=== PATIENT | female | born 1965 | race African-American/Black ===

== ENCOUNTER 2017-10-22 08:35 | Inpatient (IN) | payer OTHER ==
[~2017-10-22] VITALS: Ht 162.6 cm; Wt 56.7 kg
[2017-10-22] VITALS (12 sets, daily range): BP systolic 116–137; BP diastolic 69–85
[~2017-10-22 08:35] MED LIST: MULTIVITAMINS1 EAC2 ORAL; Pantoprazole Inj IVP ONE; Vancomycin 1gm/D5W 275ml IVPB ONE
[2017-10-22] MEDS ORDERED: Hydromorphone 0.5mg/0.5ml inj IVP PRN ×2 (09:00→16:15)
[2017-10-22] MEDS ORDERED: Metoclopramide 10mg/2ml Inj IVP PRN ×2 (09:00→16:15)
[2017-10-22] MEDS ORDERED: Atropine Inj 1mg/10ml Syr IV PRN ×2 (09:00→16:15)
[2017-10-22] MEDS ORDERED: Norco 5mg/325mg tab ORAL PRN ×3 (09:00→17:15)
[2017-10-22] MEDS ORDERED: Midazolam 2mg/2ml Inj IVP PRN ×2 (09:00→16:15)
[2017-10-22] MEDS ORDERED: Ketorolac 30mg Inj IV PRN ×4 (09:00→16:15)
[2017-10-22] MEDS ORDERED: Acetaminophen (Non formulary) 100 ML IV SCH (09:00)
[2017-10-22] MEDS ORDERED: oxyCODONE HCL/Acetaminophen 5/325mg ORAL PRN ×2 (09:00→16:15)
[2017-10-22] MEDS ORDERED: LORazepam Inj 2mg/ml 1ml IV PRN ×2 (09:00→16:15)
[2017-10-22] MEDS ORDERED: Labetalol 5mg/ml 20ml vial IV PRN ×2 (09:00→16:15)
[2017-10-22] MEDS ORDERED: fentaNYL 100 mcg/2 mL IV PRN ×2 (09:00→16:15)
[2017-10-22] MEDS ORDERED: DiphenhydrAMINE 50mg/ml Inj IVP PRN ×2 (09:00→16:15)
[2017-10-22] MEDS ORDERED: HYDROcodone/Acetamin 7.5/325 tab ORAL PRN ×3 (09:00→17:15)
[2017-10-22] MEDS ORDERED: LR 1000ml 1,000 ML IVLG SCH (09:00)
--- NOTE | 2017-10-22 09:01 | Anethesia Preoperative Eval ---
Anesthesia Pre-op PMH/ROS General Date of Evaluation: Oct 22, 2017 Time of Evaluation: 10:16 Anesthesiologist: Pietro ASA Score: ASA 1 Mallampati Score Class I : Soft palate, uvula, fauces, pillars visible Class II: Soft palate, uvula, fauces visible Class III: Soft palate, base of uvula visible Class IV: Only hard plate visible Mallampati Classification: Class I Surgeon: Katie Diagnosis: Neck Pain Surgical Procedure: PSF C3-6 Family History: no anesthesia problems Allergies: Coded Allergies: No Known Allergies (Unverified , 10/21/17) Medications: see eMAR Past Medical History PSxH Narrative: Breast Augmentation Anesthesia Pre-op Phys. Exam Physician Exam Vital Signs Date Time Temp Pulse Resp B/P (MAP) Pulse Ox O2 Delivery O2 Flow Rate FiO2 10/22/17 09:31 98.6 74 18 116/70 (85) 99 98.6 10/22/17 09:34 Room Air Constitutional: NAD Neurologic: CN 2-12 intact Cardiovascular: RRR Respiratory: CTA Gastrointestinal: S/NT/ND Airway Exam Mallampati Score: Class I MO: full ROM: limited Teeth: intact Anesthesia Pre-op A/P Risk Assessment & Plan Assessment: ASA 1 Plan: GA, BIS, GlideScope Status Change Before Surgery: No Pre-Antibiotics Dru Gram Vancomycin IV Given Within 1 Hr of Incision: Yes Time Given: 10:41 Javier Westbrook MD Oct 22, 2017 09:01
[2017-10-22] MEDS ORDERED: Pantoprazole Inj ONE (09:10)
[2017-10-22] MEDS ORDERED: Vancomycin 1gm inj IVPB ONE (09:11)
[2017-10-22] MEDS ORDERED: Heparin 1000 units/ml 1ml Vial ONE (09:37)
[2017-10-22] MEDS ORDERED: Gelfoam Absorbable 1gm powder pkt TOPIC ONE (09:38)
[2017-10-22] MEDS ORDERED: Thrombin 5000 units TOPIC ONE ×2 (09:38→13:46)
[2017-10-22] MEDS ORDERED: Thrombin 5000 units spray kit TOPIC ONE (09:38)
[2017-10-22] MEDS ORDERED: Bacitracin 50000 Units Vial ONE (09:38)
[2017-10-22] MEDS ORDERED: EPINEPHrine 1mg/1ml Amp ONE (09:39)
[2017-10-22] MEDS ORDERED: Bupivacaine 0.5% Inj 30 ml vial INJ ONE (09:39)
[2017-10-22] MEDS ORDERED: NS Irrig 1000ml ONE (10:00)
[2017-10-22] MEDS ORDERED: Propofol 1,000mg/ 100ml btl IV ONE (10:00)
[2017-10-22] MEDS ORDERED: Sterile Water Irrig 1000ml IRRIG ONE (10:00)
[2017-10-22] MEDS ORDERED: LR 1000ml ONE (10:00)
[2017-10-22] MEDS ORDERED: Lidocaine 1% Plain 30 ml INJ ONE ×3 (10:13→11:20)
[2017-10-22] MEDS ORDERED: Sodium Chloride 10ml vial INJ ONE ×2 (10:15→15:07)
[2017-10-22] MEDS ORDERED: Lidocaine 1% MPF 10mg/ml 5ml ONE (10:15)
[2017-10-22] MEDS ORDERED: Dexamethasone 4mg/ml vial ONE (10:15)
[2017-10-22] MEDS ORDERED: fentaNYL 100 mcg/2 mL IV ONE ×4 (10:16→15:11)
[2017-10-22] MEDS ORDERED: Lacri-Lube Opth Oint 3.5gm ONE (10:20)
[2017-10-22] MEDS ORDERED: Bacitracin Oint 15gm Tube TOPIC ONE (10:32)
--- NOTE | 2017-10-22 10:39 | Pre-Procedure Note/Attestation ---
Pre-Procedure Note/Attestation Complete Prior to Procedure Planned Procedure: bilateral Procedure Narrative: Posterior cervical decompressive surgery C3 to C6 with lateral mass fixation and posterolateral arthrodesis C3 to C6 with use of autograft, allograft and iliac crest bone marrow aspirate. Attestation I attest that I discussed the nature of the procedure; its benefits; risks and complications; and alternatives (and the risks and benefits of such alternatives ), prior to the procedure, with the patient (or the patient's legal retail representative). I attest that, if there was a reasonable possibility of needing a blood transfusion, the patient (or the patient's legal retail representative) was given the [place] Department [employer] Services standardized written summary, pursuant to the Benson Levi Blood Safety Act ([place] Health and Safety Code # 1645, as amended). I attest that I re-evaluated the patient just prior to the surgery and that there has been no change in the patient's H&P, except as documented below: AUTUMN THURMAN Oct 22, 2017 10:39
--- NOTE | 2017-10-22 11:37 | Immediate Post-Op Evaluation ---
Immediate Post-Op Evalulation Immediate Post-Op Evalulation Procedure: PSF C3-6 Date of Evaluation: Oct 22, 2017 Time of Evaluation: 16:44 IV Fluids: 1300 LR Blood Products: 0 Estimated Blood Loss: 200 Urinary Output: 350 Blood Pressure Systolic: 126 Blood Pressure Diastolic: 80 Pulse Rate: 91 Respiratory Rate: 16 O2 Sat by Pulse Oximetry: 100 Temperature (Fahrenheit): 97 Pain Score (1-10): 3 Nausea: No Vomiting: No Complications 0 Patient Status: awake, reacts, patent, extubated, none Hydration Status: adequate Dru gram vancomycin IV Given Within 1 Hr of Incision: Yes Time Given: 10:41 Javier Westbrook MD Oct 22, 2017 11:37
[2017-10-22] MEDS ORDERED: Naloxone 0.4mg/ml Inj ONE (15:46)
--- NOTE | 2017-10-22 16:36 | Diagnostic Imaging Report ---
Indication: Neck Pain Findings: 7 fluoroscopic views of the cervical spine were obtained. Intraoperative imaging showing posterior fusion C3-C6 with lateral mass screws and fusion rods. IMPRESSION: Intraoperative imaging
--- NOTE | 2017-10-22 17:08 | Brief Operative Note ---
Immediate Post Operative Note Operative Note Chief Complaint: Intractable neck pain and progressive worsening balance Pre-op Diagnosis: Cervical myelopathy and radiculopathy cord compression due to herniated discs at C3-4, C4-5 and C5-6 levels Lack of improvement from conservative care and medical therapy. Procedure: 1. Posterior cervical hemilaminectomies with bilateral decompression left C3-4, C4-5, C5-6 levels, with complete central decompression C3 to C6 2. Laminoforaminotomy at right C3-4 3. Laminoforaminotomy at right C4-5 4. [place] of local bone from lamina for grafting 5. Posterolateral arthrodesis at C3-4, C4-5, C5-6 level bilaterally 6. Lateral mass fixation with screws and rods at C3, C4, C5 and C6 levels, bilaterally using [place] lateral mass system 7.[place] of bone marrow from the right iliac crest for grafting 8. Intra-operative supervision, use and interpretation of fluoroscopy for localization of cervical spine and instrumentation. 9. Plastic surgical closure of a 10 cm cervical wound. 10. Microdissection and neurolysis of right C4 and C5 nerve roots 11. Intra-operative neuromonitoring and interpretation of SSEPs, MEPs and EMG. 12. Placement of epidural drain. 13. Placement of [place] head of integrated media. Post-op Diagnosis: same as pre-op Findings: consistent w/pre-op dx studies Surgeon: Kyree Thurman M.D. Clinic Mgr: Dimitrios Lomax M.D. Anesthesiologist: Dr. Ferris Anesthesia: general Specimen: none Complications: none Condition: stable Fluids: 1300 cc crystalloids Estimated Blood Loss: volume Drains: hemovac Implant(s) used?: Yes - [place] lateral mass system KYREE THURMAN Oct 22, 2017 17:08
[2017-10-22] MEDS ORDERED: traMADol 50mg tab ORAL PRN (17:15)
[2017-10-22] MEDS ORDERED: Milk of Magnesia 30ml Ud ORAL PRN (17:15)
[2017-10-22] MEDS ORDERED: Acetaminophen (Non formulary) 100 ML IV ONE (17:30)
[2017-10-22] MEDS ORDERED: Cyclobenzaprine 10mg Tab ORAL PRN (17:30)
--- NOTE | 2017-10-22 17:43 | General Progress Note ---
Progress Note Progress Note Neurosurgery POst-op S/ Comfortable. O/ Vs Last 24 Hour Vital Signs Date Time Temp Pulse Resp B/P (MAP) Pulse Ox O2 Delivery O2 Flow Rate FiO2 10/22/17 17:30 76 19 120/69 100 Nasal Cannula 3 10/22/17 17:15 76 15 122/71 100 Simple Mask 6 10/22/17 17:00 84 16 134/83 100 Simple Mask 6 10/22/17 16:50 85 14 127/79 100 Simple Mask 6 10/22/17 16:43 88 16 130/81 100 Simple Mask 6 10/22/17 16:38 85 14 123/81 100 Simple Mask 6 10/22/17 16:34 206.6 91 16 100 10/22/17 16:33 97 89 16 126/80 100 Simple Mask 6 97.0 10/22/17 09:34 Room Air 10/22/17 09:31 98.6 74 18 116/70 (85) 99 98.6 Alert and oriented MAEW Drain about 10cc out Doing well\ Admit to floor after Recovery AUTUMN THURMAN Oct 22, 2017 17:43
[2017-10-22] MEDS ORDERED: Docusate 100mg cap ORAL SCH (18:00)
[2017-10-22] MEDS ORDERED: Docusate Sod/Senna tab ORAL SCH (18:00)
[2017-10-22] MEDS ORDERED: NS w/KCl 20mEq 1,000 ML IV SCH (19:00)
[2017-10-22] MEDS ORDERED: Vancomycin 1gm/D5W 275ml IVPB SCH ×2 (20:00)
[2017-10-22] MEDS: NS w/KCl 20mEq 1,000 ML IV SCH (21:10)
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
[2017-10-23] VITALS: BP 116/64
[2017-10-23 04:00] VITALS: BP 105/63
[2017-10-23] MEDS: NS w/KCl 20mEq 1,000 ML IV SCH ×2 (06:25→16:00)
[2017-10-23 07:14] LABS: ANION GAP 8 mmol/L (5-15); BLOOD UREA NITROGEN 4 mg/dL (7-18); CALCIUM 7.3 MG/DL (8.5-10.1); CARBON DIOXIDE 25 MMOL/L (21-32); CHLORIDE 105 MMOL/L (98-107); CREATININE 0.7 MG/DL (0.55-1.30); POTASSIUM 3.9 MMOL/L (3.5-5.1); SODIUM 138 MMOL/L (136-145)
--- NOTE | 2017-10-23 07:28 | 48 Hour Post Anesthesia Eval ---
Post Anesthesia Evaluation Procedure: PSF C3-6 Date of Evaluation: Oct 23, 2017 Time of Evaluation: 06:20 Blood Pressure Systolic: 105 0: 63 Pulse Rate: 63 Respiratory Rate: 17 Temperature (Fahrenheit): 98.5 O2 Sat by Pulse Oximetry: 100 Airway: patent Nausea: No Vomiting: No Pain Intensity: 2 Hydration Status: adequate Cardiopulmonary Status: at baseline Mental Status/LOC: patient returned to baseline Post-Anesthesia Complications: 0 Follow-up care needed: N/A - further care as per primary team Agnieszka Philip MD Oct 23, 2017 07:28
[2017-10-23 08:00] VITALS: BP 125/61
[2017-10-23] MEDS ORDERED: Vancomycin 1 GM in D5W 275 ML IVPB SCH (09:00)
--- NOTE | 2017-10-23 09:00 | General Progress Note ---
Progress Note Progress Note Neurosurgery POD#1 S/ Pain under control. Ambulated in eroom. Increasd sensations in both hands O/ VS Last 24 Hour Vital Signs Date Time Temp Pulse Resp B/P (MAP) Pulse Ox O2 Delivery O2 Flow Rate FiO2 10/23/17 07:28 209.3 63 17 100 10/23/17 04:00 98.5 63 17 105/63 (77) 100 98.5 10/23/17 00:00 97.9 66 18 116/64 (81) 96 97.9 10/22/17 21:00 Nasal Cannula 3.0 10/22/17 20:00 97.5 72 18 128/78 (95) 99 97.5 10/22/17 18:15 99.1 87 15 127/85 (99) 99 99.1 10/22/17 18:15 Nasal Cannula 3.0 10/22/17 18:15 98.3 10/22/17 18:00 98.3 82 16 124/75 100 Nasal Cannula 3 98.3 10/22/17 17:45 98.6 10/22/17 17:45 84 16 137/80 100 Nasal Cannula 3 10/22/17 17:30 76 19 120/69 100 Nasal Cannula 3 10/22/17 17:15 76 15 122/71 100 Simple Mask 6 10/22/17 17:00 84 16 134/83 100 Simple Mask 6 10/22/17 16:50 85 14 127/79 100 Simple Mask 6 10/22/17 16:43 88 16 130/81 100 Simple Mask 6 10/22/17 16:38 85 14 123/81 100 Simple Mask 6 10/22/17 16:34 206.6 91 16 100 10/22/17 16:33 97 89 16 126/80 100 Simple Mask 6 97.0 10/22/17 09:34 Room Air 10/22/17 09:31 98.6 74 18 116/70 (85) 99 98.6 Alert and oriented x 4 MAEW increased sensation in the hands bilaterally Incisions are clean dry and intact HV 85 cc last night Labs Laboratory Tests Test 10/23/17 05:35 White Blood Count 9.6 K/UL (4.8-10.8) Red Blood Count 4.17 M/UL (4.20-5.40) L Hemoglobin 11.0 G/DL (12.0-16.0) L Hematocrit 34.9 % (37.0-47.0) L Mean Corpuscular Volume 84 FL (80-99) Mean Corpuscular Hemoglobin 26.3 PG (27.0-31.0) L Mean Corpuscular Hemoglobin Concent 31.4 G/DL (32.0-36.0) L Red Cell Distribution Width 11.3 % (11.6-14.8) L Platelet Count 158 K/UL (150-450) Mean Platelet Volume 7.1 FL (6.5-10.1) Neutrophils (%) (Auto) 79.7 % (45.0-75.0) H Lymphocytes (%) (Auto) 14.3 % (20.0-45.0) L Monocytes (%) (Auto) 5.7 % (1.0-10.0) Eosinophils (%) (Auto) 0.1 % (0.0-3.0) Basophils (%) (Auto) 0.3 % (0.0-2.0) Sodium Level 138 MMOL/L (136-145) Potassium Level 3.9 MMOL/L (3.5-5.1) Chloride Level 105 MMOL/L (98-107) Carbon Dioxide Level 25 MMOL/L (21-32) Anion Gap 8 mmol/L (5-15) Blood Urea Nitrogen 4 mg/dL (7-18) L Creatinine 0.7 MG/DL (0.55-1.30) Estimat Glomerular Filtration Rate > 60 mL/min (>60) Glucose Level 97 MG/DL (74-106) Calcium Level 7.3 MG/DL (8.5-10.1) L doing well ambulate d/c planning AUTUMN THURMAN Oct 23, 2017 09:00
[2017-10-23] MEDS: Docusate 100mg cap ORAL SCH ×2 (09:08→17:30)
[2017-10-23] MEDS: Docusate Sod/Senna tab ORAL SCH ×2 (09:08→17:30)
[2017-10-23 12:00] VITALS: BP 114/74
[2017-10-23 16:00] VITALS: BP 113/65
[2017-10-23 20:00] VITALS: BP 115/63
--- NOTE | 2017-10-23 23:46 | General Progress Note ---
Assessment/Plan Status Narrative s/p complex posterior spine fusion doing well pt ort dvt prophyalxis paincontrol monitor jr doing well off norcotic as she does not like the effect of norcotic. Subjective Date patient seen: Oct 23, 2017 Time patient seen: 23:44 Constitutional: Reports: no symptoms Cardiovascular: Reports: no symptoms Allergies: Coded Allergies: No Known Allergies (Unverified , 10/21/17) Subjective copuld not tolerat e the pain medicaiotn no fever no chills Objective Last 24 Hour Vital Signs Date Time Temp Pulse Resp B/P (MAP) Pulse Ox O2 Delivery O2 Flow Rate FiO2 10/23/17 21:00 Room Air 10/23/17 20:00 98.8 77 20 115/63 (80) 97 98.8 10/23/17 16:00 98.1 82 20 113/65 (81) 99 98.1 10/23/17 12:48 Room Air 10/23/17 12:00 99.1 72 20 114/74 (87) 98 99.1 10/23/17 09:00 Nasal Cannula 3.0 10/23/17 08:00 98.6 70 20 125/61 (82) 98 98.6 10/23/17 07:28 209.3 63 17 100 10/23/17 04:00 98.5 63 17 105/63 (77) 100 98.5 10/23/17 00:00 97.9 66 18 116/64 (81) 96 97.9 Intake and Output 10/22/17 10/23/17 19:00 07:00 Intake Total 1500 ml 1310 ml Output Total 550 ml 1395 ml Balance 950 ml -85 ml Intake Oral 360 ml IV Total 1500 ml 950 ml Output Urine Total 350 ml 1275 ml Drainage Total 120 ml Estimated Blood Loss 200 ml # Voids 1 Laboratory Tests 10/23/17 05:35: White Blood Count 9.6, Red Blood Count 4.17L, Hemoglobin 11.0L, Hematocrit 34.9L , Mean Corpuscular Volume 84, Mean Corpuscular Hemoglobin 26.3L, Mean Corpuscular Hemoglobin Concent 31.4L, Red Cell Distribution Width 11.3L, Platelet Count 158, Mean Platelet Volume 7.1, Neutrophils (%) (Auto) 79.7H, Lymphocytes (%) (Auto) 14.3L, Monocytes (%) (Auto) 5.7, Eosinophils (%) (Auto) 0.1, Basophils (%) (Auto) 0.3, Sodium Level 138, Potassium Level 3.9, Chloride Level 105, Carbon Dioxide Level 25, Anion Gap 8, Blood Urea Nitrogen 4L, Creatinine 0.7, Estimat Glomerular Filtration Rate > 60, Glucose Level 97, Calcium Level 7.3L Height (Feet): 5 Height (Inches): 4.00 Weight (Pounds): 125 General Appearance: WD/WN Neck: other - wearing cerviical collar soft Cardiovascular: normal rate, regular rhythm Respiratory/Chest: lungs clear Abdomen: soft Oswald Phan MD Oct 23, 2017 23:46
[2017-10-24] VITALS: BP 117/72
[2017-10-24 04:00] VITALS: BP 107/68
[2017-10-24 08:00] VITALS: BP 110/69
[2017-10-24] MEDS: Docusate 100mg cap ORAL SCH (09:00)
[2017-10-24] MEDS: Docusate Sod/Senna tab ORAL SCH (10:49)
--- NOTE | 2017-10-24 10:53 | General Progress Note ---
Progress Note Progress Note Neurosurgery S/ Felling much better. Ambulated. Pain better controlled. Tolerating po's well O/ Vs: Last 24 Hour Vital Signs Date Time Temp Pulse Resp B/P (MAP) Pulse Ox O2 Delivery O2 Flow Rate FiO2 10/24/17 04:00 98.5 78 20 107/68 (81) 99 98.5 10/24/17 00:00 99.1 74 20 117/72 (87) 99 99.1 10/23/17 21:00 Room Air 10/23/17 20:00 98.8 77 20 115/63 (80) 97 98.8 10/23/17 16:00 98.1 82 20 113/65 (81) 99 98.1 10/23/17 12:48 Room Air 10/23/17 12:00 99.1 72 20 114/74 (87) 98 99.1 Alert and orineted x 4 smiling Incision is C/D/I Motor 5/5 improved senstion in the hands and upper extremities bilaterally HV removed without complications doing well d/c instructions reviewed with patient and nursing in detail. AUTUMN THURMAN Oct 24, 2017 10:53
--- NOTE | 2017-10-24 11:49 | General Progress Note ---
Assessment/Plan Status Narrative s/p comple xspine surgery doing well pain is tolerated Assessment/Plan dc home followup tracy lozano. Subjective Date patient seen: Oct 24, 2017 Time patient seen: 11:49 HEENT: Reports: no symptoms Cardiovascular: Reports: no symptoms Allergies: Coded Allergies: No Known Allergies (Unverified , 10/21/17) Subjective dioign well to go home no feve nochills Objective Last 24 Hour Vital Signs Date Time Temp Pulse Resp B/P (MAP) Pulse Ox O2 Delivery O2 Flow Rate FiO2 10/24/17 04:00 98.5 78 20 107/68 (81) 99 98.5 10/24/17 00:00 99.1 74 20 117/72 (87) 99 99.1 10/23/17 21:00 Room Air 10/23/17 20:00 98.8 77 20 115/63 (80) 97 98.8 10/23/17 16:00 98.1 82 20 113/65 (81) 99 98.1 10/23/17 12:48 Room Air 10/23/17 12:00 99.1 72 20 114/74 (87) 98 99.1 Intake and Output 10/23/17 10/24/17 19:00 07:00 Intake Total 1745 ml 300 ml Output Total 2065 ml 35 ml Balance -320 ml 265 ml Intake Oral 820 ml 300 ml IV Total 925 ml Output Urine Total 2000 ml Drainage Total 65 ml 35 ml # Voids 1 1 Height (Feet): 5 Height (Inches): 4.00 Weight (Pounds): 125 Oswald Phan MD Oct 24, 2017 11:49
[2017-10-24 12:00] VITALS: BP 115/78
[2017-10-24] MEDS ORDERED: TRAMADOL HCL50 MG ORAL (12:33)
[2017-10-24] MEDS ORDERED: CYCLOBENZAPRINE5 MG ORAL (12:35)
--- NOTE | 2017-10-25 02:30 | Discharge Summary ---
DATE OF ADMISSION: 10/22/2017 DATE OF DISCHARGE: 10/24/2017 DISCHARGE DIAGNOSIS: Status post posterior cervical decompressive surgery and lateral mass fusion C3 through C6 with posterolateral arthrodesis. HISTORY OF PRESENT ILLNESS: Refer to the chart for detailed History and Physical. HOSPITAL COURSE: The patient was admitted on 10/22/2017, underwent an uneventful posterior cervical decompressive surgery at C3 through C6 levels with posterolateral arthrodesis. Postop, the patient was transferred to the floor. Drain was removed postop day 2. She is ambulating well. Her upper extremity sensation significantly improved after surgery. Physical therapy has been working with her. She has been discharged home with appropriate discharge instructions. CONSULTATION: Internal Medicine with Dr. Erickson. MEDICATIONS: Include cyclobenzaprine and tramadol as directed. DISCHARGE DIET: Regular. DISPOSITION: Home. ACTIVITIES: The patient is asked to wear the cervical collar at all times for the first week. She can wear the cervical collar out of bed after the first week. She is asked not to bend more than 5 pounds on repetitive basis. She is asked to call Dr. Wilson and go to the nearest ER in case of fever, chills, or drainage from her incision. She is asked to keep the incision dry for four days. COMPLICATIONS: None. Kyree Wilson M.D. DR: GALILEO JOB#: [id number] CC:
== END 2017-10-24 13:45 | disposition home or self-care (01) | DRG 473 ==
LOC: SDSOVERFLO 08:35 → 3E 18:35
DX: M50.11 Cervical disc disorder with radiculopathy, high cervical region (principal); S19.9XXS Unspecified injury of neck, sequela; V49.9XXS Car occupant (driver) (passenger) injured in unspecified traffic accident, sequela
CPT/HCPCS: 36415; 72040; 76001; 80048; 81025; 85025; 86850; 86900; 86901; 87081; 94003; 94150; C9399; J2405